=== PATIENT | female | born 2000 | race Caucasian/White ===

== ENCOUNTER 2023-01-28 01:40 | Emergency (ER) | payer SELFPAY ==
[2023-01-28 02:24] LABS: Bilirubin 6 (Negative); Blood, Urine 250 (Negative); Clarity Cloudy (Clear); Glucose, Urine (Dipstick) Normal (Negative); Ketone, Urine Negative (Negative); Leukocyte 500 (Negative); Nitrite Positive (Negative); Protein, Urine (Dipstick) 100 mg/dl (Neg-Trace); Specific Gravity, Urine 1.015 (1.005-1.030); pH, Urine 6.5 (5.0-9.0)
[2023-01-28 02:25] LABS: Pregnancy Test - Urine (BHCG) Negative (Negative); Pregu Control Background? CLEAR/WHITE (CLR/WHITE); Pregu Control Bar Appear? YES (CONTROL BAR); Specific Gravity 1.015 (1.002-1.036)
[2023-01-28 02:31] LABS: RBC/HPF 21-50 HPF (0-3); WBC/HPF 21-50 HPF (0-3)
[2023-01-28 02:32] LABS: Bacteria/HPF 2+ HPF (None Seen)
== END 2023-01-28 02:46 | disposition home or self-care (01) ==
LOC: CSHERS 01:40
DX: N30.00 Acute cystitis without hematuria (principal)
CPT/HCPCS: 81003; 81015; 81025; 87077; 87086; 87186; 99284